=== PATIENT | female | born 1970 | race Caucasian/White ===

== ENCOUNTER 2019-07-12 21:39 | Emergency (ER) | payer OTHER, SELFPAY ==
[2019-07-12 22:01] VITALS: BP 158/85; PULSE 88; RESP 16; TEMP 37.7; O2SAT 98; BMI 72.6
--- NOTE | 2019-07-12 22:10 | ED_ITS ---
HPI - Female Genitourinary General Chief complaint: Urogenital-Female Stated complaint: UTI Time Seen by Provider: 07/12/19 21:41 Source: patient Mode of arrival: Wheelchair Limitations: no limitations and physical limitation History of Present Illness HPI Narrative: 48-year-old female former smoker presents with a chief complaint of a day or 2 of burning, frequency, urgency and dysuria. She has a subjective fever and some vague back pain but denies any nausea or vomiting. She denies any upper respiratory complaints such as runny nose, sore throat or cough. She is otherwise well and free of complaint. She denies vaginal bleeding or discharge MD Complaint: dysuria and UTI Onset (ago): day(s) Location: suprapubic Female Urogenital Radiation: Suprapubic Severity: mild Quality: Aching Duration: constant Relieving factors: none Exacerbating factors: urination Urinary symptoms: Difficulty Urinating, Dysuria, Foul Smelling Urine, Frequency and Urgency Patient : No Related Data Home Medications Medication Instructions Recorded Confirmed IBUPROFEN (Motrin / Advil) 400 mg PO #0 08/20/08 [EXCEDRIN] #0 08/20/08 Previous Rx's Medication Instructions Recorded ondansetron HCl [Zofran] 4 mg PO Q8H PRN #10 tab 07/12/19 sulfamethoxazole-trimethoprim 1 tab PO Q12H #20 tab 07/12/19 [Bactrim DS] Allergies Allergy/AdvReac Type Severity Reaction Status Date / Time Penicillins Allergy Verified 07/12/19 22:04 Review of Systems Constitutional Constitutional: Denies chills, Denies fatigue, Denies fever(s), Denies frequent falls, Denies lethargy and Denies weakness Eyes Eyes: Denies change in vision, Denies eye discharge, Denies irritation and Denies loss of vision ENT Ears, Nose, Mouth, and Throat: Denies change in voice, Denies dizziness, Denies neck pain, Denies sore throat and Denies throat swelling Cardiovascular Cardiovascular: Denies chest pain, Denies irregular heart rhythm, Denies lightheadedness, Denies palpitations, Denies dyspnea, Denies dyspnea on exertion and Denies orthopnea Respiratory Respiratory: Denies cough, Denies dyspnea, Denies dyspnea on exertion and Denies wheezing Gastrointestinal Gastrointestinal: Denies abdominal pain, Denies change in bowel habits, Denies diarrhea, Denies nausea and Denies vomiting Genitourinary Genitourinary: Denies hematuria, Reports urinary frequency, Denies flank pain, Denies urinary incontinence and Reports urinary urgency Musculoskeletal Musculoskeletal: Denies back pain, Denies muscle weakness, Denies neck pain, Denies numbness and Denies tingling Integumentary/Breasts Skin/Breast: Denies pruritus, Denies erythema, Denies rash and Denies wounds Neurologic Neurologic: Denies behavioral changes, Denies confusion, Denies dizziness, D enies frequent falls, Denies loss of vision, Denies numbness, Denies tingling and Denies weakness Psychiatric Psychiatric: Denies anxiety, Denies behavioral changes, Denies confusion, Denies depression, Denies homicidal ideation and Denies suicidal ideation Endocrine Endocrine: Denies fatigue, Denies flushing and Denies palpitations Hematologic/Lymphatic Hematologic/Lymphatic: Denies easy bruising Allergic/Immunologic Allergic/Immunologic: Denies urticaria, Denies throat swelling and Denies wheezing Patient History tobacco type: cigarettes alcohol intake frequency: 0-2 drinks per day Substance Use Type: does not use Exam Narrative Exam Narrative: GENERAL: [48] year old patient appears stated age. Well- nourished, well-developed patient, in mild distress. Morbidly obese HEAD: Atraumatic. Normocephalic. EYES: Pupils equal round and reactive. Extraocular motions intact. No scleral icterus. No injection or drainage. ENT: Nose without bleeding, purulent drainage. Throat without erythema, tonsillar hypertrophy or exudate. Airway patent. NECK: Trachea midline. Non tender CARDIOVASCULAR: Regular rate and rhythm without murmurs, gallops, or rubs. RESPIRATORY: Clear to auscultation. Breath sounds equal bilaterally. No wheezes, rales, or rhonchi. GASTROINTESTINAL: Abdomen soft, non-tender, nondistended. EXTREMITIES: No edema or joint tenderness. BACK: Nontender without deformity or crepitance. No flank tenderness. NEURO: AOx3. SKIN: No rash or erythema of visible areas Initial Vital Signs Initial Vital Signs: Vital Signs Temperature 99.9 F H 07/12/19 22:01 Pulse Rate 88 07/12/19 22:01 Respiratory Rate 16 07/12/19 22:01 Blood Pressure 158/85 H 07/12/19 22:01 Pulse Oximetry 98 07/12/19 22:01 Course Orders Ordered: Discontinued Medications Ondansetron HCl (Zofran Odt Prepack) 1 bottle MISC SEEINSTR ONE Stop: 07/12/19 22:24 Last Admin: 07/12/19 22:37 Dose: 1 bottle Documented by: LUIS ENRIQUE Trimethoprim/Sulfamethoxazole (Bactrim Ds) 1 tab PO NOW ONE Stop: 07/12/19 22:11 Last Admin: 07/12/19 22:37 Dose: 1 tab Documented by: LUIS ENRIQUE Vital Signs Vital signs: Vital Signs - 8 hr 07/12/19 22:01 Temperature 99.9 F H Pulse Rate 88 Respiratory Rate 16 Blood Pressure 158/85 H Pulse Oximetry 98 MDM - Female Genitourinary Lab Data Labs: Lab Results 07/12/19 Range/Units 22:00 Urine RBC 1-5/hpf (0-5/HPF) Urine WBC 30-100/hpf H (0-5/HPF) Ur Squamous Epith Cells 1-5 /hpf (0-5/HPF) Urine Bacteria Many (>30) H (None) Ur Culture Indicated? Specimen cultured Urine Dip Bedside Urine Glucose Negative Bedside Urine Bilirubin - Negative Bedside Urine Ketone +/- 5 Urine Specific [place] 1.015 Bedside Urine Occult Blood +++ Bedside Urine pH 7.5 Bedside Urine Protein ++ 100 Bedside Urine Urobilinogen +/- 1mg Bedside Urine Nitrite + Positive Bedside Urine Leukocytes +++ 500 Esterase Discharge Plan Departure Patient Disposition: Home Clinical Impression: Urinary tract infection Qualifiers: Urinary tract infection type: acute cystitis Hematuria presence: with hematuria Qualified Code(s): N30.01 - Acute cystitis with hematuria Discharge Date/Time: 07/12/19 22:47 Instructions: DI for Urinary Tract Infection (UTI) Activity Restrictions/Additional Instructions: *You have been diagnosed with [acute UTI] *What to do: *Take medications as directed *Follow up with your primary care provider in 2-3 days, call for an appointment. Let them know you were seen in the Emergency Department and that we ask that you be seen in follow up *Return to ER if you should have any new, worsening or concerning symptoms Prescriptions: New sulfamethoxazole-trimethoprim [Bactrim DS] 800-160 mg tablet 1 tab PO Q12H Qty: 20 RF: 0 ondansetron HCl [Zofran] 4 mg tablet 4 mg PO Q8H PRN (Reason: nausea and vomiting) Qty: 10 RF: 0 No Action IBUPROFEN (Motrin / Advil) 400 mg PO Qty: 0 RF: 0 [EXCEDRIN] Qty: 0 RF: 0 Referrals: Kael Matias MD [Primary Care Provider] - Cori Johnson MD [Physician] -
[2019-07-12 22:23] LABS: Bacteria Urine Many (>30); Culture Indicated Urine Specimen Cultured; RBC Urine 1-5/HPF (0-5/HPF); Squamous Epithelial Cell Urine 1-5 /HPF (0-5/HPF); WBC Urine 30-100/HPF (0-5/HPF)
[2019-07-12] MEDS: TRIMETH/SULFA 160/800 (DS) TABLET 1 TAB PO (22:37)
[2019-07-12] MEDS: ONDANSETRON 4 MG ODT PREPACK 1 BOTTLE MISC (22:37)
[2019-07-12 22:46] VITALS: BP 160/89; PULSE 90; RESP 20; O2SAT 98
== END 2019-07-12 22:47 | disposition home or self-care (01) ==
PROVIDERS: Emergency Provider Emergency Medicine; PCP Family Medicine
DX: N30.01 Acute cystitis with hematuria (principal)
CPT/HCPCS: 81003; 81015; 87077; 87086; 87186; 99281; 99283

== ENCOUNTER 2022-02-18 18:25 | Emergency (ER) | payer OTHER, SELFPAY ==
[2022-02-18] VITALS (12 sets, daily range): BP systolic 142; BP diastolic 72; PULSE 89–105; RESP 16–28; TEMP 36.9; O2SAT 91–99
--- NOTE | 2022-02-18 18:36 | DI.RAD.S_ITS ---
PROCEDURE: XR CHEST 1V INDICATIONS: chest pain TECHNIQUE: One view of the chest was acquired. COMPARISON: None. FINDINGS: Cardiomegaly with mild interstitial edema and pulmonary vascular congestion. There also appears to be some mild alveolar edema in the central/perihilar lungs. No pleural effusion or pneumothorax. Low lung volumes. IMPRESSION: Low lung volumes, cardiomegaly, and mild pulmonary edema. Dictated by: Grabiel Middleton M.D. on 02/18/2022 at 19:12 Approved by: Grabiel Middleton M.D. on 02/18/2022 at 19:12
[2022-02-18 18:48] LABS: INR 1.2 (0.9-1.3); Prothrombin Time 13.1 SECONDS (10.1-12.7)
[2022-02-18 18:50] LABS: Add Manual Diff / Slide Review NO; Basophils Absolute Auto 0 /uL (0-100); Basophils Percent Auto 0.7 % (0-2); Eosinophils Absolute Auto 100 /uL (0-450); Hematocrit 38.6 % (36-46); Hemoglobin 13.1 g/dL (12.0-16.0); Lymphocytes Absolute Auto 1000 /uL (1100-4500); Lymphocytes Percent Auto 15.3 % (25-40); Mean Corpuscular HGB Conc 33.9 % (30-36); Mean Corpuscular Hemoglobin 26.7 PG (26-34); Mean Corpuscular Volume 78.8 fL (80-100); Monocytes Absolute Auto 500 /uL (0-900); Monocytes Percent Auto 8.3 % (3-14); Neutrophils Absolute Auto 4700 /uL (1500-7000); Neutrophils Percent Auto 73.7 % (50-75); Platelet Count 152 X10^3/uL (150-400); Red Blood Cell Count 4.89 X10^6/uL (4.0-5.2); Red Cell Distribution Width 14.3 % (11.6-14.8); White Blood Cell Count 6.4 X10^3/uL (4.5-11.0)
[2022-02-18 18:51] LABS: PTT Partial Thromboplastin Tim 33 SECONDS (26.4-36.2)
[2022-02-18 18:54] LABS: Alanine Aminotransferase 18 IU/L (<35); Albumin 3.6 g/dL (3.5-5.0); Albumin Globulin Ratio 0.9 (1.0-2.8); Alkaline Phosphatase 71 U/L (38-126); Aspartate Aminotransferase 32 IU/L (14-36); Bilirubin Total 0.6 mg/dL (0.2-1.3); Blood Urea Nitrogen 15 mg/dL (7-17); Carbon Dioxide 31 mmol/L (22-32); Chloride 105 mmol/L (98-107); Creatine Kinase 37 U/L (30-135); Estimated Glomerular Filt Rate > 60 mL/min (>60); Globulin 3.8 g/dL (1.7-4.1); Glucose 104 mg/dL (70-100); HEMOLYSIS < 15 (0-50); Lipase 34 U/L (23-300); Magnesium 1.9 mg/dL (1.6-2.3); Potassium 3.3 mmol/L (3.4-5.1); Sodium 139 mmol/L (137-145); Total Protein 7.4 g/dL (6.3-8.2)
[2022-02-18 19:02] LABS: NT-proBNP (BNP-Adult 18+) 107 pg/mL (<125)
[2022-02-18 19:04] LABS: Troponin I < 0.012 ng/mL (0.01-0.034)
--- NOTE | 2022-02-18 21:15 | ED_ITS ---
HPI - Chest Pain <Marky Sinclair MD - Last Filed: 02/26/22 18:10> General Chief Complaint: Chest Pain Stated Complaint: R side pain Time Seen by Provider: 02/18/22 20:41 History of Present Illness HPI narrative: Patient here for right-sided chest pain and right leg pain. Ongoing for 3 days. Patient and state for a long time she has been bed ridden but usually can get up with a walker to the bathroom. However recently has declined in ability to do this. Patient denies any recent illness. No injury. Patient is morbidly obese. She states a long time ago she had a back injury and since then has declined in mobility. The pandemic has caused a lot of depression and loss of activity. Denies any previous blood clots in legs or lungs. Has right-sided chest discomfort with deep breath and radiates to the neck. Patient states right leg and left leg has chronic lymphedema. However right leg has been worse with pain in the last 3 days. Does feel short of breath as well. Patient in no distress speaking full sentences. Related Data Home Medications Medication Instructions Recorded Confirmed IBUPROFEN (Motrin / Advil) 400 mg PO ##0 08/20/08 [EXCEDRIN] ##0 08/20/08 Previous Rx's Medication Instructions Recorded ondansetron HCl 4 mg tablet 4 mg PO Q8H PRN nausea and 07/12/19 (Zofran) vomiting #10 tabs sulfamethoxazole 800 1 tab PO Q12H #20 tabs 07/12/19 mg-trimethoprim 160 mg tablet (Bactrim DS) ciprofloxacin HCl 500 mg tablet 500 mg PO Q12H #10 tabs 02/20/22 Allergies Allergy/AdvReac Type Severity Reaction Status Date / Time Penicillins Allergy Verified 07/12/19 22:04 Review of Systems <Marky Sinclair MD - Last Filed: 02/26/22 18:10> Review of Systems Narrative: GENERAL: Denies chills, fatigue, malaise, fever, sweats. HEENT: Denies sinus pain, ear pain, sore throat RESPIRATORY: Denies dyspnea, cough CARDIOVASCULAR: Positive for chest pain, negative palpitations GASTROINTESTINAL: Denies nausea, vomiting, abdominal pain : Denies dysuria, frequency, hematuria MUSCULOSKELETAL: Positive for muscle or bony pain SKIN: Denies rash, skin lesions NEUROLOGIC: Denies weakness, numbness ROS Unobtainable: All systems reviewed & are unremarkable except as noted in HPI and below Patient History <aMrky Sinclair MD - Last Filed: 02/26/22 18:10> Social History household members: spouse and children Smoking Status: Former smoker Smoking Status: Former smoker tobacco type: cigarettes alcohol intake frequency: 0-2 drinks per day Substance Use Type: does not use Exam <Marky Sinclair MD - Last Filed: 02/26/22 18:10> Narrative Exam Narrative: GENERAL: in no distress, not toxic not dyspneic HEAD: Normocephalic. EYES: Pupils equal round No scleral icterus. ENT: Mucous membranes moist. NECK: Trachea midline. CARDIOVASCULAR: Regular rate and rhythm without murmurs, tachycardic RESPIRATORY: Clear to auscultation. Breath sounds equal bilaterally. No wheezes, rales, or rhonchi. GASTROINTESTINAL: Abdomen soft, non-tender EXTREMITIES: Extensive bilateral lymphedema of the legs and feet. Very challenging for skin exam with mobility of her legs. Difficult to assess for calf tenderness NEURO: AOx4. SKIN: Warm and dry PSYCH: Not anxious, is cooperative Initial Vital Signs Initial Vital Signs: Vital Signs Temperature 98.4 F 02/18/22 18:30 Pulse Rate 105 H 02/18/22 18:30 Respiratory Rate 20 02/18/22 18:30 Blood Pressure 142/72 H 02/18/22 18:30 Pulse Oximetry 99 02/18/22 18:30 Oxygen Delivery Method 02/18/22 18:30 <Radha Lo DO - Last Filed: 02/22/22 08:34> Initial Vital Signs Initial Vital Signs: Vital Signs Temperature 98.4 F 02/18/22 18:30 Pulse Rate 105 H 02/18/22 18:30 Respiratory Rate 20 02/18/22 18:30 Blood Pressure 142/72 H 02/18/22 18:30 Pulse Oximetry 99 02/18/22 18:30 Oxygen Delivery Method 02/18/22 18:30 Course <Marky Sinclair MD - Last Filed: 02/26/22 18:10> Course Course Narrative: No new issues during course of stay February 19/2022 at 7:00 a.m.. Sign out to Dr. Lo there was no staff Advil overnight daily for transferring patient for CT scan. This morning will have more staff for CT scan imaging. Patient weight does qualify under [address] scan imaging. Girth to be determined. Patient does need SNF as well as social work February 19, 2022 at 6:50 p.m.. Spoke with administration on-call, spoke with Samson, patient is not to be admitted to the floor. Does not qualify medically. Patient will have to be discharged home with home health care or SNF. I spoke with home health care social worker Daphney, she has called several facilities and patient insurance is not accepted or there is no availability for beds. Next option would be home health care. 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 MD Yahir 8:00 p.m.. I did speak with patient and . They do have concerns about home health setting. has been working at home to try to prepare for her return but logistically bedroom is upstairs in the home. Concern for patient's safety for mobility if she does try do come down from the bedroom. does express patient may have some psychiatric considerations given her worsen ing symptoms over the years. Social work is seeing patient for many concerns. They are aware my discussion with administration that criteria has not been met for admission to the hospital. They do understand that [facility] facilities have been contacted today by social dennis Shelley and still pending at many facilities or rejected due to insurance coverage. Home health option will be reviewed tomorrow. Yahir KISER Orders Ordered: Discontinued Medications COVID-19 Vaccine mRNA LNP-S (MOD) (PF) (Covid-19 Vacc #1, Mrna(Mod) 100 Mcg/0.5 Ml Vial) 100 mcg IM .ONCE ONE Stop: 02/20/22 09:46 Last Admin: 02/20/22 17:51 Dose: Not Given Documented By: KB Ciprofloxacin (Ciprofloxacin 250 Mg Tablet) 500 mg PO BID LAYNE Last Admin: 02/20/22 09:34 Dose: 500 mg Documented By: RB Enoxaparin Sodium (Enoxaparin 40 Mg/0.4 Ml Syringe) 100 mg 0.5 mg/kg (100 mg) SUBCUT NOW ONE Stop: 02/19/22 03:31 Last Admin: 02/19/22 04:07 Dose: 100 mg Documented By: LARISSA Sodium Chloride (Normal Saline 0.9%) 500 mls @ 1,000 mls/hr IV BOLUS ONE Stop: 02/19/22 00:04 Last Infusion: 02/19/22 06:57 Dose: 0 mls/hr Documented By: Admin: 02/19/22 04:23 Dose: 1,000 mls/hr Documented By: DEAN Ciprofloxacin (Cipro) 400 mg in 200 mls @ 200 mls/hr IV NOW ONE Stop: 02/19/22 13:33 Last Infusion: 02/19/22 14:27 Dose: 0 mls/hr Documented By: Admin: 02/19/22 12:59 Dose: 200 mls/hr Documented By: PINA Ketorolac Tromethamine (Ketorolac 30 Mg/Ml Vial) 15 mg IV NOW ONE Stop: 02/19/22 10:03 Last Admin: 02/19/22 10:42 Dose: 15 mg Documented By: ENRIQUETA Morphine Sulfate (Morphine 4 Mg/Ml Inj) 4 mg IV NOW ONE Stop: 02/19/22 11:33 Last Admin: 02/19/22 11:46 Dose: 4 mg Documented By: ENRIQUETA Vital Signs Vital signs: Vital Signs - 8 hr 02/20/22 08:38 Pulse Rate 90 Respiratory Rate 18 Blood Pressure 147/91 H Pulse Oximetry 99 Oxygen Delivery Method Room Air <Radha Lo, DO - Last Filed: 02/22/22 08:34> Course Course Narrative: No new issues during course of stay February 19/2022 at 7:00 a.m.. Sign out to Dr. Lo there was no staff Advil overnight daily for transferring patient for CT scan. This morning will have more staff for CT scan imaging. Patient weight does qualify under [address] scan imaging. Girth to be determined. Patient does need SNF as well as social work 02/18/22 Teresita: Patient was signed out to myself by Dr. Sinclair. She is awaiting CT PE rule out this was ordered at midnight but they were unable to obtain secondary to manpower issues get patient onto the CT scanner. We are able to obtain this this morning CT is negative for pulmonary emboli. There is a right adrenal nodule noted with recommendation for follow-up CT adrenal protocol or MRI adrenal protocol in the future. Patient tolerated well. She was seen independently evaluated by myself she is had right-sided chest and leg pain, no clear emergent cause was found her ultrasound was negative for DVT. Workup s hows UTI but no other cardiac, pulmonary, vascular cause at this time may be related to or musculoskeletal issues. Patient and family indicates that they are significant issues at home with movement patient has found herself in a situation where she is unable to get to her bed, she is been sleeping on the couch and at times using briefs in puppy pads as she is unable to get to the bathroom in a timely manner. Patient has got herself a walker but is unable to stand from couch without significant assistance. They are seeking help with rehab placement or similar resources. At this time no clear medical cause has been found for admission she was given a dose of IV antibiotics for her UTI. C ase was discussed with Dr. Nova who is on-call for her team and he did see patient here in the department [id number]. DEVELOPMENT EDITOR in the department but with the patient discussed home health options but there were concerns that this may not be adequate from the family and staff, were also seeking placement possible rehab facility. Patient was seen in the afternoon by PT. Recommendations were appreciated. During the day social work in the emergency department was contacted by upstairs social work and busperson hospital plan administrator with recommendations about how to proceed. This was prior to PT. they did not feel patient qualified medically. They wish patient to be discharged home or SNF, home health care and community maintenance and utilities supervisor program. At this time there is either no availability for beds for patient's insurance is not accepted. Next option would be home health care. There is no community maintenance and utilities supervisor program in the region that she is currently living in. Patient has continued to be medically stable in the department. Patient signed out to Dr. Sinclair overnight while continuing to assist patient with safe disposition. February 19, 2022 at 6:50 p.m.. Spoke with administration on-call, spoke with Samson, patient is not to be admitted to the floor. Does not qualify medically. Patient will have to be discharged home with home health care or SNF. I spoke with home health care social worker Daphney, she has called several facilities and patient insurance is not accepted or there is no availability for beds. Next option would be home health care. 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 MD Yahir 8:00 p.m.. I did speak with patient and . They do have concerns about home health setting. has been working at home to try to prepare for her return but logistically bedroom is upstairs in the home. Concern for patient's safety for mobility if she does try do come down from the bedroom. does express patient may have some psychiatric considerations given her worsening symptoms over the years. Social work is seeing patient for many concerns. They are aware my discussion with administration that criteria has n ot been met for admission to the hospital. They do understand that [facility] facilities have been contacted today by social dennis Shelley and still pending at many facilities or rejected due to insurance coverage. Home health option will be reviewed tomorrow. Yahir KISER 02/19/22 Mank: Patient signed back out to myself by Dr. Sinclair. Patient seen independently evaluated by myself again. She is currently on an oral antibiotic for UTI. She defers anything for pain states her extremities feeling better she found her PT visit quite helpful. She and her are working to try to set up home to may get ready for safe disposition they are still interested in rehab if there was a bed available at this time it is unlikely but social work is continuing to work on it and they are meeting. Patient also met with wound for options to treat her skin. We both discussed potential resources within the community that are available she is found this helpful. Orders Ordered: Discontinued Medications COVID-19 Vaccine mRNA LNP-S (MOD) (PF) (Covid-19 Vacc #1, Mrna(Mod) 100 Mcg/0.5 Ml Vial) 100 mcg IM .ONCE ONE Stop: 02/20/22 09:46 Last Admin: 02/20/22 17:51 Dose: Not Given Documented By: KB Ciprofloxacin (Ciprofloxacin 250 Mg Tablet) 500 mg PO BID LAYNE Last Admin: 02/20/22 09:34 Dose: 500 mg Documented By: RB Enoxaparin Sodium (Enoxaparin 40 Mg/0.4 Ml Syringe) 100 mg 0.5 mg/kg (100 mg) SUBCUT NOW ONE Stop: 02/19/22 03:31 Last Admin: 02/19/22 04:07 Dose: 100 mg Documented By: AP Sodium Chloride (Normal Saline 0.9%) 500 mls @ 1,000 mls/hr IV BOLUS ONE Stop: 02/19/22 00:04 Last Infusion: 02/19/22 06:57 Dose: 0 mls/hr Documented By: Admin: 02/19/22 04:23 Dose: 1,000 mls/hr Documented By: DEAN Ciprofloxacin (Cipro) 400 mg in 200 mls @ 200 mls/hr IV NOW ONE Stop: 02/19/22 13:33 Last Infusion: 02/19/22 14:27 Dose: 0 mls/hr Documented By: Admin: 02/19/22 12:59 Dose: 200 mls/hr Documented By: PINA Ketorolac Tromethamine (Ketorolac 30 Mg/Ml Vial) 15 mg IV NOW ONE Stop: 02/19/22 10:03 Last Admin: 02/19/22 10:42 Dose: 15 mg Documented By: ENRIQUETA Morphine Sulfate (Morphine 4 Mg/Ml Inj) 4 mg IV NOW ONE Stop: 02/19/22 11:33 Last Admin: 02/19/22 11:46 Dose: 4 mg Documented By: ENRIQUETA Vital Signs Vital signs: Vital Signs - 8 hr 02/20/22 08:38 Pulse Rate 90 Respiratory Rate 18 Blood Pressure 147/91 H Pulse Oximetry 99 Oxygen Delivery Method Room Air MDM - Chest Pain <Marky Sinclair MD - Last Filed: 02/26/22 18:10> Differential Diagnosis Differential diagnosis: Likely stable angina, unstable angina pectoris, chest pain and other (PE/DVT) Lab Data Result diagrams: 02/18/22 16:24 02/18/22 16:24 Labs: Lab Results 02/18/22 02/18/22 02/18/22 Range/Units 16:24 16:24 16:24 WBC 6.4 (4.5-11.0) X10^3/uL RBC 4.89 (4.0-5.2) X10^6/uL Hgb 13.1 (12.0-16.0) g/dL Hct 38.6 (36-46) % MCV 78.8 L (80-100) fL MCH 26.7 (26-34) PG MCHC 33.9 (30-36) % RDW 14.3 (11.6-14.8) % Plt Count 152 (150-400) X10^3/uL Neut % (Auto) 73.7 (50-75) % Lymph % (Auto) 15.3 L (25-40) % [place] % (Auto) 8.3 (3-14) % Eos % (Auto) 2.0 (2-4) % Baso % (Auto) 0.7 (0-2) % Neut # (Auto) 4700 (3645-1027) /uL Lymph # (Auto) 1000 L (8029-6962) /uL [place] # (Auto) 500 (0-900) /uL Eos # (Auto) 100 (0-450) /uL Baso # (Auto) 0 (0-100) /uL PT 13.1 H (10.1-12.7) SECONDS INR 1.2 (0.9-1.3) APTT 33 (26.4-36.2) SECONDS D-Dimer (<230) ng/mL Sodium 139 (137-145) mmol/L Potassium 3.3 L (3.4-5.1) mmol/L Chloride 105 (98-107) mmol/L Carbon Dioxide 31 (22-32) mmol/L BUN 15 (7-17) mg/dL Creatinine 0.60 (0.52-1.04) mg/dL Estimated GFR > 60 (>60) mL/min BUN/Creatinine Ratio 25.0 H (6-22) Glucose 104 H (70-100) mg/dL Calcium 9.0 (8.4-10.2) mg/dL Magnesium 1.9 (1.6-2.3) mg/dL Total Bilirubin 0.6 (0.2-1.3) mg/dL AST 32 (14-36) IU/L ALT 18 (<35) IU/L Alkaline Phosphatase 71 (38-126) U/L Total Creatine Kinase 37 (30-135) U/L CK-MB (CK-2) TNP CK-MB (CK-2) Rel Index TNP Troponin I < 0.012 (0.01-0.034) ng/mL NT-Pro-B Natriuret Pep (<125) pg/mL Total Protein 7.4 (6.3-8.2) g/dL Albumin 3.6 (3.5-5.0) g/dL Globulin 3.8 (1.7-4.1) g/dL Albumin/Globulin Ratio 0.9 L (1.0-2.8) Lipase 34 (23-300) U/L Urine Color Urine Appearance Urine pH (4.5-8.0) Ur Specific [place] (1.000-1.035) Urine Protein (Negative) Urine Glucose (UA) (Negative) g/dL Urine Ketones (NEGATIVE) Urine Occult Blood (Negative) Urine Nitrate (Negative) Urine Bilirubin (NEGATIVE) Urine Urobilinogen (0.2) E.U./dL Ur Leukocyte Esterase (NEGATIVE) Urine RBC (0-5/HPF) Urine WBC (0-5/HPF) Ur Squamous Epith Cells (0-5/HPF) Urine Bacteria (None) Ur Culture Indicated? 02/18/22 02/18/22 02/19/22 Range/Units 16:24 22:54 00:42 WBC (4.5-11.0) X10^3/uL RBC (4.0-5.2) X10^6/uL Hgb (12.0-16.0) g/dL Hct (36-46) % MCV (80-100) fL MCH (26-34) PG MCHC (30-36) % RDW (11.6-14.8) % Plt Count (150-400) X10^3/uL Neut % (Auto) (50-75) % Lymph % (Auto) (25-40) % [place] % (Auto) (3-14) % Eos % (Auto) (2-4) % Baso % (Auto) (0-2) % Neut # (Auto) (7559-8997) /uL Lymph # (Auto) (9858-0056) /uL [place] # (Auto) (0-900) /uL Eos # (Auto) (0-450) /uL Baso # (Auto) (0-100) /uL PT (10.1-12.7) SECONDS INR (0.9-1.3) APTT (26.4-36.2) SECONDS D-Dimer 791 H (<230) ng/mL Sodium (137-145) mmol/L Potassium (3.4-5.1) mmol/L Chloride (98-107) mmol/L Carbon Dioxide (22-32) mmol/L BUN (7-17) mg/dL Creatinine (0.52-1.04) mg/dL Estimated GFR (>60) mL/min BUN/Creatinine Ratio (6-22) Glucose (70-100) mg/dL Calcium (8.4-10.2) mg/dL Magnesium (1.6-2.3) mg/dL Total Bilirubin (0.2-1.3) mg/dL AST (14-36) IU/L ALT (<35) IU/L Alkaline Phosphatase (38-126) U/L Total Creatine Kinase (30-135) U/L CK-MB (CK-2) CK-MB (CK-2) Rel Index Troponin I (0.01-0.034) ng/mL NT-Pro-B Natriuret Pep 107 (<125) pg/mL Total Protein (6.3-8.2) g/dL Albumin (3.5-5.0) g/dL Globulin (1.7-4.1) g/dL Albumin/Globulin Ratio (1.0-2.8) Lipase (23-300) U/L Urine Color Yellow Urine Appearance Cloudy Urine pH 7.5 (4.5-8.0) Ur Specific [place] 1.010 (1.000-1.035) Urine Protein Negative (Negative) Urine Glucose (UA) Negative (Negative) g/dL Urine Ketones Negative (NEGATIVE) Urine Occult Blood Trace-lysed (Negative) Urine Nitrate Positive H (Negative) Urine Bilirubin Negative (NEGATIVE) Urine Urobilinogen 0.2 (0.2) E.U./dL Ur Leukocyte Esterase 1+ H (NEGATIVE) Urine RBC None seen (0-5/HPF) Urine WBC 0-1/hpf (0-5/HPF) Ur Squamous Epith Cells 0-1 /hpf (0-5/HPF) Urine Bacteria Many (>30) H (None) Ur Culture Indicated? Specimen cultured 02/19/22 Range/Units 06:22 WBC (4.5-11.0) X10^3/uL RBC (4.0-5.2) X10^6/uL Hgb (12.0-16.0) g/dL Hct (36-46) % MCV (80-100) fL MCH (26-34) PG MCHC (30-36) % RDW (11.6-14.8) % Plt Count (150-400) X10^3/uL Neut % (Auto) (50-75) % Lymph % (Auto) (25-40) % [place] % (Auto) (3-14) % Eos % (Auto) (2-4) % Baso % (Auto) (0-2) % Neut # (Auto) (2506-0449) /uL Lymph # (Auto) (4613-7002) /uL [place] # (Auto) (0-900) /uL Eos # (Auto) (0-450) /uL Baso # (Auto) (0-100) /uL PT (10.1-12.7) SECONDS INR (0.9-1.3) APTT (26.4-36.2) SECONDS D-Dimer (<230) ng/mL Sodium (137-145) mmol/L Potassium (3.4-5.1) mmol/L Chloride (98-107) mmol/L Carbon Dioxide (22-32) mmol/L BUN (7-17) mg/dL Creatinine (0.52-1.04) mg/dL Estimated GFR (>60) mL/min BUN/Creatinine Ratio (6-22) Glucose (70-100) mg/dL Calcium (8.4-10.2) mg/dL Magnesium (1.6-2.3) mg/dL Total Bilirubin (0.2-1.3) mg/dL AST (14-36) IU/L ALT (<35) IU/L Alkaline Phosphatase (38-126) U/L Total Creatine Kinase 33 (30-135) U/L CK-MB (CK-2) TNP CK-MB (CK-2) Rel Index TNP Troponin I < 0.012 (0.01-0.034) ng/mL NT-Pro-B Natriuret Pep (<125) pg/mL Total Protein (6.3-8.2) g/dL Albumin (3.5-5.0) g/dL Globulin (1.7-4.1) g/dL Albumin/Globulin Ratio (1.0-2.8) Lipase (23-300) U/L Urine Color Urine Appearance Urine pH (4.5-8.0) Ur Specific [place] (1.000-1.035) Urine Protein (Negative) Urine Glucose (UA) (Negative) g/dL Urine Ketones (NEGATIVE) Urine Occult Blood (Negative) Urine Nitrate (Negative) Urine Bilirubin (NEGATIVE) Urine Urobilinogen (0.2) E.U./dL Ur Leukocyte Esterase (NEGATIVE) Urine RBC (0-5/HPF) Urine WBC (0-5/HPF) Ur Squamous Epith Cells (0-5/HPF) Urine Bacteria (None) Ur Culture Indicated? Imaging Data Chest x-ray: Radiologist's Impression: [address] [address] XRay Report Signed Patient: Nidhi Parish MR#: [id number] : 1970 Acct:[id number] Age/Sex: 51 / F Date of Service: 02/18/22 Loc: ED Accession Number: [id number] ?? Procedure: XR chest 1V Ordering Provider: Marky Sinclair MD PROCEDURE:? XR CHEST 1V ? INDICATIONS:? chest pain ? TECHNIQUE:? One view of the chest was acquired.? ? COMPARISON:? None. ? FINDINGS:? ? Cardiomegaly with mild interstitial edema and pulmonary vascular congestion.? There also appears to be some mild alveolar edema in the central/perihilar lungs.? No pleural effusion or pneumothorax.? Low lung volumes. ? IMPRESSION:? Low lung volumes, cardiomegaly, and mild pulmonary edema.? ? ? Dictated by: Grabiel Middleton M.D. on 02/18/2022 at 19:12 ? ? Approved by: Grabiel Middleton M.D. on 02/18/2022 at 19:12 ? ECG Data Interpretation: Sinus tachycardia, no ST elevation or depression. Rate 103 <Radha Lo, - Last Filed: 02/22/22 08:34> Lab Data Labs: Lab Results 02/18/22 02/18/22 02/18/22 Range/Units 16:24 16:24 16:24 WBC 6.4 (4.5-11.0) X10^3/uL RBC 4.89 (4.0-5.2) X10^6/uL Hgb 13.1 (12.0-16.0) g/dL Hct 38.6 (36-46) % MCV 78.8 L (80-100) fL MCH 26.7 (26-34) PG MCHC 33.9 (30-36) % RDW 14.3 (11.6-14.8) % Plt Count 152 (150-400) X10^3/uL Neut % (Auto) 73.7 (50-75) % Lymph % (Auto) 15.3 L (25-40) % [place] % (Auto) 8.3 (3-14) % Eos % (Auto) 2.0 (2-4) % Baso % (Auto) 0.7 (0-2) % Neut # (Auto) 4700 (7677-5541) /uL Lymph # (Auto) 1000 L (9961-9362) /uL [place] # (Auto) 500 (0-900) /uL Eos # (Auto) 100 (0-450) /uL Baso # (Auto) 0 (0-100) /uL PT 13.1 H (10.1-12.7) SECONDS INR 1.2 (0.9-1.3) APTT 33 (26.4-36.2) SECONDS D-Dimer (<230) ng/mL Sodium 139 (137-145) mmol/L Potassium 3.3 L (3.4-5.1) mmol/L Chloride 105 (98-107) mmol/L Carbon Dioxide 31 (22-32) mmol/L BUN 15 (7-17) mg/dL Creatinine 0.60 (0.52-1.04) mg/dL Estimated GFR > 60 (>60) mL/min BUN/Creatinine Ratio 25.0 H (6-22) Glucose 104 H (70-100) mg/dL Calcium 9.0 (8.4-10.2) mg/dL Magnesium 1.9 (1.6-2.3) mg/dL Total Bilirubin 0.6 (0.2-1.3) mg/dL AST 32 (14-36) IU/L ALT 18 (<35) IU/L Alkaline Phosphatase 71 (38-126) U/L Total Creatine Kinase 37 (30-135) U/L CK-MB (CK-2) TNP CK-MB (CK-2) Rel Index TNP Troponin I < 0.012 (0.01-0.034) ng/mL NT-Pro-B Natriuret Pep (<125) pg/mL Total Protein 7.4 (6.3-8.2) g/dL Albumin 3.6 (3.5-5.0) g/dL Globulin 3.8 (1.7-4.1) g/dL Albumin/Globulin Ratio 0.9 L (1.0-2.8) Lipase 34 (23-300) U/L Urine Color Urine Appearance Urine pH (4.5-8.0) Ur Specific [place] (1.000-1.035) Urine Protein (Negative) Urine Glucose (UA) (Negative) g/dL Urine Ketones (NEGATIVE) Urine Occult Blood (Negative) Urine Nitrate (Negative) Urine Bilirubin (NEGATIVE) Urine Urobilinogen (0.2) E.U./dL Ur Leukocyte Esterase (NEGATIVE) Urine RBC (0-5/HPF) Urine WBC (0-5/HPF) Ur Squamous Epith Cells (0-5/HPF) Urine Bacteria (None) Ur Culture Indicated? 02/18/22 02/18/22 02/19/22 Range/Units 16:24 22:54 00:42 WBC (4.5-11.0) X10^3/uL RBC (4.0-5.2) X10^6/uL Hgb (12.0-16.0) g/dL Hct (36-46) % MCV (80-100) fL MCH (26-34) PG MCHC (30-36) % RDW (11.6-14.8) % Plt Count (150-400) X10^3/uL Neut % (Auto) (50-75) % Lymph % (Auto) (25-40) % [place] % (Auto) (3-14) % Eos % (Auto) (2-4) % Baso % (Auto) (0-2) % Neut # (Auto) (3100-3306) /uL Lymph # (Auto) (8536-6414) /uL [place] # (Auto) (0-900) /uL Eos # (Auto) (0-450) /uL Baso # (Auto) (0-100) /uL PT (10.1-12.7) SECONDS INR (0.9-1.3) APTT (26.4-36.2) SECONDS D-Dimer 791 H (<230) ng/mL Sodium (137-145) mmol/L Potassium (3.4-5.1) mmol/L Chloride (98-107) mmol/L Carbon Dioxide (22-32) mmol/L BUN (7-17) mg/dL Creatinine (0.52-1.04) mg/dL Estimated GFR (>60) mL/min BUN/Creatinine Ratio (6-22) Glucose (70-100) mg/dL Calcium (8.4-10.2) mg/dL Magnesium (1.6-2.3) mg/dL Total Bilirubin (0.2-1.3) mg/dL AST (14-36) IU/L ALT (<35) IU/L Alkaline Phosphatase (38-126) U/L Total Creatine Kinase (30-135) U/L CK-MB (CK-2) CK-MB (CK-2) Rel Index Troponin I (0.01-0.034) ng/mL NT-Pro-B Natriuret Pep 107 (<125) pg/mL Total Protein (6.3-8.2) g/dL Albumin (3.5-5.0) g/dL Globulin (1.7-4.1) g/dL Albumin/Globulin Ratio (1.0-2.8) Lipase (23-300) U/L Urine Color Yellow Urine Appearance Cloudy Urine pH 7.5 (4.5-8.0) Ur Specific [place] 1.010 (1.000-1.035) Urine Protein Negative (Negative) Urine Glucose (UA) Negative (Negative) g/dL Urine Ketones Negative (NEGATIVE) Urine Occult Blood Trace-lysed (Negative) Urine Nitrate Positive H (Negative) Urine Bilirubin Negative (NEGATIVE) Urine Urobilinogen 0.2 (0.2) E.U./dL Ur Leukocyte Esterase 1+ H (NEGATIVE) Urine RBC None seen (0-5/HPF) Urine WBC 0-1/hpf (0-5/HPF) Ur Squamous Epith Cells 0-1 /hpf (0-5/HPF) Urine Bacteria Many (>30) H (None) Ur Culture Indicated? Specimen cultured 02/19/22 Range/Units 06:22 WBC (4.5-11.0) X10^3/uL RBC (4.0-5.2) X10^6/uL Hgb (12.0-16.0) g/dL Hct (36-46) % MCV (80-100) fL MCH (26-34) PG MCHC (30-36) % RDW (11.6-14.8) % Plt Count (150-400) X10^3/uL Neut % (Auto) (50-75) % Lymph % (Auto) (25-40) % [place] % (Auto) (3-14) % Eos % (Auto) (2-4) % Baso % (Auto) (0-2) % Neut # (Auto) (2644-2453) /uL Lymph # (Auto) (7256-8146) /uL [place] # (Auto) (0-900) /uL Eos # (Auto) (0-450) /uL Baso # (Auto) (0-100) /uL PT (10.1-12.7) SECONDS INR (0.9-1.3) APTT (26.4-36.2) SECONDS D-Dimer (<230) ng/mL Sodium (137-145) mmol/L Potassium (3.4-5.1) mmol/L Chloride (98-107) mmol/L Carbon Dioxide (22-32) mmol/L BUN (7-17) mg/dL Creatinine (0.52-1.04) mg/dL Estimated GFR (>60) mL/min BUN/Creatinine Ratio (6-22) Glucose (70-100) mg/dL Calcium (8.4-10.2) mg/dL Magnesium (1.6-2.3) mg/dL Total Bilirubin (0.2-1.3) mg/dL AST (14-36) IU/L ALT (<35) IU/L Alkaline Phosphatase (38-126) U/L Total Creatine Kinase 33 (30-135) U/L CK-MB (CK-2) TNP CK-MB (CK-2) Rel Index TNP Troponin I < 0.012 (0.01-0.034) ng/mL NT-Pro-B Natriuret Pep (<125) pg/mL Total Protein (6.3-8.2) g/dL Albumin (3.5-5.0) g/dL Globulin (1.7-4.1) g/dL Albumin/Globulin Ratio (1.0-2.8) Lipase (23-300) U/L Urine Color Urine Appearance Urine pH (4.5-8.0) Ur Specific [place] (1.000-1.035) Urine Protein (Negative) Urine Glucose (UA) (Negative) g/dL Urine Ketones (NEGATIVE) Urine Occult Blood (Negative) Urine Nitrate (Negative) Urine Bilirubin (NEGATIVE) Urine Urobilinogen (0.2) E.U./dL Ur Leukocyte Esterase (NEGATIVE) Urine RBC (0-5/HPF) Urine WBC (0-5/HPF) Ur Squamous Epith Cells (0-5/HPF) Urine Bacteria (None) Ur Culture Indicated? Imaging Data CT scan - chest: Radiologist's Impression: Close Vascular Ultrasound (Signed) Bernardo Lee - 02/18/22 Chest CTA (Signed) Bill Diezwn - 02/18/22 Chest X-Ray (Signed) Grabiel Middleton - 02/18/22 Launch?Image [address] [address] [address] Scan Report Signed Patient: Nidhi Parish MR#: [id number] : 1970 Acct:[id number] Age/Sex: 51 / F Date of Service: 02/18/22 Loc: ED Accession Number: [id number] ?? Procedure: CT angio chest PE protocol Ordering Provider: Marky Sinclair MD PROCEDURE:? CT ANGIO CHEST PE PROTOCOL ? INDICATIONS:? Chest pain ? TECHNIQUE:? After the administration of intravenous contrast, 2 mm thick sections acquired from the pulmonary apices to the posterior costophrenic angles.? 3-dimensional maximum intensity projection (MIP) coronal and sagittal reformats were then acquired through the thorax.? For radiation dose reduction, the following was used:? automated exposure control, adjustment of mA and/or kV according to patient size.? ? COMPARISON:? [facility], CR, XR CHEST 1V, 02/18/2022, 18:37. ? FINDINGS:? Image quality:? Fair.? ? Pulmonary arteries:? Pulmonary arteries are normal in size, and demonstrate no intraluminal filling defects to suggest central pulmonary embolism.? ? Lungs and pleura:? Mild dependent atelectasis.? No pleural effusions or pneumothorax.? Central and peripheral airways are patent.? ? Mediastinum:? Heart size is prominent, without pericardial effusion.? No mediastinal or hilar adenopathy.? Thoracic aorta is normal in caliber and enhancement.? Esophagus is normal in caliber, small hiatal hernia.? Asymmetric elevation of the right hemidiaphragm. ? ? Bones and chest wall:? No suspicious bony lesions.? Ribs and thoracic spine appear intact throughout.? Thyroid gland is unremarkable.? No axillary or supraclavicular adenopathy.? ? Abdomen:? Right adrenal nodule measuring 3.4 cm, ().? This nodule is low- density. ? IMPRESSION:? 1. No central pulmonary embolism. ? 2. Minimal dependent atelectasis.? Prominent heart size. ? 3. Incidental right adrenal nodule is indeterminate.? -Recommend washout CT adrenal protocol or MRI adrenal protocol for further evaluation. ? ? ? Dictated by: Taras Diez M.D. on 02/19/2022 at 8:58 ? ? Approved by: Taras Diez M.D. on 02/19/2022 at 9:08?? MDM Narrative Medical decision making narrative: This is a 51-year-old female with history of morbid obesity on no other daily medications. Patient has had increasing weakness and debility secondary to habitus, she is developed right-sided chest and lower extremity pain. No pulmonary emboli or blood clots were found, troponins negative x2 with negative EKG, patient was found to have a UTI. Patient has a mild hypokalemia but no other significant changes. Discussed with patient her findings today, she did ask for a dose of pain medication she is not had anything overnight was given a dose of Toradol here. Discussed with her primary care service, Dr. Nova. Patient less likely to have a cardiac cause of her symptoms regarding her lower extremity involvement. DEVELOPMENT EDITOR met with patient to discuss options and way we can help with safe disposition. PT did see the patient in the afternoon, they recommend rehab/SNF and options are being explored. There was no bed availability or they did not take patient's insurance today. Discharge Plan Departure Patient Disposition: Home Clinical Impression: Right-sided chest pain, Leg pain, right, UTI (urinary tract infection), Morbid obesity Instructions: DI for Urinary Tract Infection (UTI) Activity Restrictions/Additional Instructions: Please follow up with the resources provided by social work. Home health care is supposed to arrive tomorrow. Your medical workup was overall reassuring but you do have what appears to be a UTI. Prescription is included and sent to [facility] in [place]. Use the topical ointments in the areas where your skin is excoriated or red. Use these as instructed by wound care. Please feel free to return if you are having new or worsening symptoms, passing out, new changes to her chest pain, shortness of breath, new swelling, persistent vomiting or other new or concerning symptoms. Prescriptions: New ciprofloxacin HCl 500 mg tablet 500 mg PO Q12H Qty: 10 0RF No Action IBUPROFEN (Motrin / Advil) 400 mg PO Qty: 0 [EXCEDRIN] Qty: 0 sulfamethoxazole-trimethoprim [Bactrim DS] 800-160 mg tablet 1 tab PO Q12H Qty: 20 0RF ondansetron HCl [Zofran] 4 mg tablet 4 mg PO Q8H PRN (Reason: nausea and vomiting) Qty: 10 0RF Referrals: Merrill Temple MD [Primary Care Provider] - Visit Report Forms: Patient Portal/API
[2022-02-18 23:11] LABS: D Dimer 791 ng/mL (<230)
--- NOTE | 2022-02-18 23:35 | DI.CT.S_ITS ---
PROCEDURE: CT ANGIO CHEST PE PROTOCOL INDICATIONS: Chest pain TECHNIQUE: After the administration of intravenous contrast, 2 mm thick sections acquired from the pulmonary apices to the posterior costophrenic angles. 3-dimensional maximum intensity projection (MIP) coronal and sagittal reformats were then acquired through the thorax. For radiation dose reduction, the following was used: automated exposure control, adjustment of mA and/or kV according to patient size. COMPARISON: [facility], CR, XR CHEST 1V, 02/18/2022, 18:37. FINDINGS: Image quality: Fair. Pulmonary arteries: Pulmonary arteries are normal in size, and demonstrate no intraluminal filling defects to suggest central pulmonary embolism. Lungs and pleura: Mild dependent atelectasis. No pleural effusions or pneumothorax. Central and peripheral airways are patent. Mediastinum: Heart size is prominent, without pericardial effusion. No mediastinal or hilar adenopathy. Thoracic aorta is normal in caliber and enhancement. Esophagus is normal in caliber, small hiatal hernia. Asymmetric elevation of the right hemidiaphragm. Bones and chest wall: No suspicious bony lesions. Ribs and thoracic spine appear intact throughout. Thyroid gland is unremarkable. No axillary or supraclavicular adenopathy. Abdomen: Right adrenal nodule measuring 3.4 cm, (4/126). This nodule is low-density. IMPRESSION: 1. No central pulmonary embolism. 2. Minimal dependent atelectasis. Prominent heart size. 3. Incidental right adrenal nodule is indeterminate. -Recommend washout CT adrenal protocol or MRI adrenal protocol for further evaluation. Dictated by: Taras Diez M.D. on 02/19/2022 at 8:58 Approved by: Taras Diez M.D. on 02/19/2022 at 9:08
--- NOTE | 2022-02-18 23:35 | DI.US.S_ITS ---
PROCEDURE: US PERIPH VENOUS LOW EXTREM RT INDICATIONS: PAIN TECHNIQUE: Real-time imaging, as well as color and pulse Doppler interrogation, were performed of the lower extremity deep veins from the inguinal ligament to the popliteal fossa. COMPARISON: None. FINDINGS: The common femoral, proximal femoral and popliteal veins are normally compressible, and free of intraluminal thrombus. The mid and distal femoral veins were not well seen secondary to body habitus. Color and pulse Doppler demonstrate normal phasic intraluminal flow. There is normal augmentation response to distal compression maneuver. IMPRESSION: 1. No definite evidence of deep venous thrombosis in the right lower extremity. Dictated by: Bernardo Lee M.D. on 02/19/2022 at 0:43 Approved by: Bernardo Lee M.D. on 02/19/2022 at 0:44
[2022-02-19] VITALS (39 sets, daily range): BP systolic 131–160; BP diastolic 63–107; PULSE 78–101; RESP 15–26; O2SAT 93–100
[2022-02-19 00:50] LABS: Appearance Urine UA CLOUDY; Bilirubin Urine UA NEGATIVE (NEGATIVE); Color Urine UA YELLOW; Glucose Urine UA NEGATIVE (Negative); Ketones Urine UA NEGATIVE (NEGATIVE); Leukocyte Esterase Urine UA 1+ (NEGATIVE); Nitrite Urine UA POSITIVE (Negative); Occult Blood Urine UA TRACE-LYSED (Negative); Protein Urine UA NEGATIVE (Negative); Urobilinogen Urine UA 0.2 E.U./dL (0.2)
[2022-02-19 00:56] LABS: Bacteria Urine Many (>30); Culture Indicated Urine Specimen Cultured; RBC Urine None Seen (0-5/HPF); Squamous Epithelial Cell Urine 0-1 /HPF (0-5/HPF); WBC Urine 0-1/HPF (0-5/HPF); pH Urine UA 7.5 (4.5-8.0)
[2022-02-19] MEDS: ENOXAPARIN 40 MG/0.4 ML SYRINGE 100 MG SUBCUT (04:07)
[2022-02-19] MEDS: SODIUM CHLORIDE 0.9% 500 ML 1000 ML IV (04:23)
[2022-02-19 06:50] LABS: Creatine Kinase 33 U/L (30-135)
[2022-02-19 07:03] LABS: Troponin I < 0.012 ng/mL (0.01-0.034)
[2022-02-19] MEDS: KETOROLAC 30 MG/ML VIAL 15 MG IV (10:42)
--- NOTE | 2022-02-19 11:30 | PC.NURSE ---
Went to PT office and talked with Tia in PT to notify of order for PT eval.
[2022-02-19] MEDS: MORPHINE 4 MG/ML INJ IV (11:46)
[2022-02-19] MEDS: CIPROFLOXACIN 400 MG/200 ML PIGGYBACK 200 MG IV (12:59)
--- NOTE | 2022-02-19 13:50 | PT.IIE ---
Physical Therapy Inpatient Evaluation/Re-Eval M1 PT/OT-IP Prior Functional Status Start: 02/19/22 15:01 Freq: Status: Active Protocol: Document 02/19/22 13:50 AB (Rec: 02/19/22 15:19 AB [id number]) Medical Review Prior Functional Status Medical History Reviewed Yes Communication able to make needs known Mobility and Gait pt stated that she has been slowly declining in function due to RLE pain. able to ambulate ~ 10 ft to the toilet without AD but furniture cruises and usually just sits on the couch and props BLE on 2 ottomans. until ~ 3 months only able to stand and was using pads for voiding. For the last 5-6 days, unable to even stand. stated that they just got a walker to assist but unable to stand due to pain. pt stated that she has not told her doctor that she is has been chair bound for a while. sponge bathes with disposable wipes. pt stated that she usually has simple food accessible for her ( apple sauce, yogurt) when she is by herself. Spouse assists with meals and daughter occasionally will also bring food for her. Social History Household Members spouse,children Living Arrangements House Number of Floors (Floors) Two Floors Number of Stairs To Enter/Railing? pt lives on a split level house 7 steps wide rails to enter 8 steps L rail ascending to get to main living area Home Environment Standard Height Toilet,Tub/ Shower Home Equipment Front Wheel Walker Additional Social History Comment spouse works 730 to 530 and unable to assist; daughter at home with pt as well M2 PT-IP Current Condition Start: 02/19/22 15:01 Freq: Status: Active Protocol: Document 02/19/22 13:50 AB (Rec: 02/19/22 15:19 AB [id number]) Physical Therapy Current Condition Current Condition Evaluation Date 02/19/22 Treatment Diagnosis UTI; R chest pain; difficulty in walking Onset Date 02/18/22 M3 PT-IP Subjective Start: 02/19/22 15:01 Freq: Status: Active Protocol: Document 02/19/22 13:50 AB (Rec: 02/19/22 15:19 AB [id number]) Subjective Physical Therapy Visit Type Type Initial Evaluation Visit Start Time 13:50 Visit Stop Time 14:46 Total Visit Minutes 56 Number of LAYAWAY CLERK Visits 0 Physical Therapy Visit Comments Patient Comments agreeable to do PT M4 PT-IP Mobility and Gait Start: 02/19/22 15:01 Freq: Status: Active Protocol: Document 02/19/22 13:50 AB (Rec: 02/19/22 15:19 AB [id number]) PT-Bed Mobility Assessment Supine to Sit Supine to Sit Maximum Assistance,Total Assistance,2 Person Assistance ,Head of Bed Elevated Sit to Supine Sit to Supine Maximum Assistance,Total Assistance,2 Person Assistance Scooting Scooting to Edge of Bed Dependent PT-Transfer Assessment Comments Mobility Comments pt completed supine to sit with HOB elevated max A x 3 to total A x 3. sat on EOB CGA. assisted back to bed max A x 3 to total A x 3. c/o increase BLE pain R>L. positioned on the bed. call light and table placed within reach. PT-Balance Assessment Sitting Balance and Reactions Static Sitting Balance Ability Fair Dynamic Sitting Balance Ability Fair M5 PT-IP Objective Assessments Start: 02/19/22 15:01 Freq: Status: Active Protocol: Document 02/19/22 13:50 AB (Rec: 02/19/22 15:19 AB [id number]) Orientation Orientation/Cognition Level of Alertness Alert Orientation Name,Place,Situation Language Function Ability No Deficits Noted Safety Awareness Decreased Safety Awareness Memory Description No Deficits Noted Gross Range of Motion Lower Extremity ROM Assessment Bilaterally Impaired Impairments (+) B knee crepitus; c/o increase pain with PROM limiting movement Strength Lower Extremity Strength Assessment Bilaterally Impaired Comments Strength Comments RLE: 3-/5 LLE: 3-/5 Sensation Assessment Sensation Light Touch Impaired Proprioception (Position) Impaired Comments Sensation Comments has B LE edema decreasing sensation Muscle Tone Muscle Tone WNL Yes M6 PT-IP Treatment Start: 02/19/22 15:01 Freq: Status: Active Protocol: Document 02/19/22 13:50 AB (Rec: 02/19/22 15:19 AB [id number]) Physical Therapy Treatment Education Education Provided Safety M7 PT-IP Assessment and Plan Start: 02/19/22 15:01 Freq: Status: Active Protocol: Document 02/19/22 13:50 AB (Rec: 02/19/22 15:19 AB [id number]) PT Summary Assessment and Plan Potential Rehabilitation Potential Fair Status of Condition at Evaluation Evolving Summary Impairments Pain,ROM,Strength,Balance, Coordination,Sensation,Tone, Cognition,Bed Mobility, Transfers,Gait,Activity Tolerance Assessment Summary PT eval order received from ER to determine PT needs and plans to go to SNF rehab. pt has morbid obesity, BLE edema and BLE pain R>L requiring max A x 3 to total Ax 3 with bed mobility. pt stated that 5-6 days ago, she was able to at least stand and change her pads for voiding but now, unable to stand at all. pt will need SNF rehab to improve overal strength and mobility independence. Goals Bed Mobility Goal Moderate Assistance Transfer Goal Moderate Assistance,Front Wheeled Walker Gait Goal Moderate Assistance,Front Wheel Walker Gait Distance 25 Days to Meet Goals 10 Frequency of Treatment Frequency Of Treatment Once a Day Treatment Plan Physical Therapy Treatment Plan Bed Mobility Training,Transfer Training,Gait Training, Therapeutic Exercise,Balance Retraining,Discharge Planning, Hot or Cold Pack,Neuromuscular Re-ed,Coordination Retraining ,Manual Therapy Recommendations To Nursing Amount of Assist Needed Mechanical Lift Discharge Recommendations PT Discharge Recommendations SNF Rehab Transportation Needs at Discharge Wheelchair/Cabulance,Stretcher /Ambulance
--- NOTE | 2022-02-19 14:23 | PC.NURSE ---
PT at bedside.
--- NOTE | 2022-02-19 15:18 | CM.SWNOTE ---
Addendum entered by Daphney Lim 02/19/22 20:05: MOVIE OPERATOR receives call from Administration. Per Administration, they would like patient to d/c to home this evening with HH referral and BLS transport. Administration states they will have care management team f/u with patient at home tomorrow. MOVIE OPERATOR reviews this with ED provider Dr. Sinclair, Dr. Sinclair signs HH F2F referral and indicates understanding. MOVIE OPERATOR reviews this plan with patient, patient presents as fearful and worried about preparing her home for her. MOVIE OPERATOR discusses HH options and patient denies preference. MOVIE OPERATOR provides HH brochure for [facility], list of DME equiptment resources and provides group home care resources with the senior resource guide. MOVIE OPERATOR calls [facility] and leaves VM, MOVIE OPERATOR faxes clinicals, F2F, order for HH referral for PT, OT, MOVIE OPERATOR, RN and HH aide. Patient endorses concern of the quality of her transfer home for when she goes home and discusses how uncomfortable the transfer from her home was and states that it took 8 people to assist. Plan: patient to d/c to home via BLS with further support from [facility], patient to d/c with [facility] referral in place. SUDHEER Pizano Addendum entered by Daphney Lim 02/19/22 17:19: MOVIE OPERATOR/CARMEN Note MOVIE OPERATOR calls [place] and leaves VM MOVIE OPERATOR calls [facility] and leaves VM MOVIE OPERATOR calls [facility] and leaves message requesting return call. Plan: continue to search for SNF rehab placement and explore alternative options for patient. SUDHEER Pizano Original Note: MOVIE OPERATOR/ALLISONP Note Patient is 51 y/o female who presents to ED via EMS due to concern for right side pain. Patient reports hx of being bed bound but has been able to ambulate to the bathroom with walker until recently. Patient endorses that the leg pain has increased in the last 3 days. Patient states that she was able to stand 5-6 days ago but is not able to stand now. Patient's PCP is Dr. Temple, patient has [employer] insurance. Patient has hx of chest pain, leg pain, morbid obesity and UTI. MOVIE OPERATOR enters room to meet with patient and . Patient endorses that she has been sedentary since early 2017 but has been able to ambulate to the restroom until recently. Patient endorses hx of fear regarding leaving the house when the pandemic started. Patient endorses increase in leg pain recently which has limited patient's ability to ambulate. Patient states she is having current difficulty to stand up and get up with walker. Patient endorses pain, anguish and embarrassment Patient endorses that she has been sleeping on the couch since 2017. It is reported that patient has meals prepared for her and that she uses baby wipes to cleanse herself and has not been able to shower. Patient resides at home with her and daughter. and patient endorse concern for patient's ability to safely return to home. MOVIE OPERATOR discusses HH with patient and and they express concern and preference for patient to be in a facility or at the hospital. Patient endorses she wants physical therapy, MOVIE OPERATOR reports that PT will come down to meet with patient and assess. MOVIE OPERATOR discusses that in the case that there is not an admittable diagnosis to be admitted to acute care, MOVIE OPERATOR will explore options such as SNF rehab and HH at home with patient. Patient's Freddie calls MOVIE OPERATOR and reports his concerns privately. Freddie reports that patient's daughter has been a caregiver for 5 years and that she stated that she is no longer able to care for patient anymore and now patient is aware of her issue and motivated to strengthen her mobility. reports concern that the home is not set up well and there are concerns for hoarding. reports he is overwhelmed at the idea of patient returning home. MOVIE OPERATOR discusses that if patient were to d/c to home, a HH referral would be in place and resources would be provided for DME and truck terminal manager care plans. MOVIE OPERATOR discusses out of pocket private pay SNF options and he states that he could not afford that. MOVIE OPERATOR endorses that MOVIE OPERATOR will be calling SNFs to identify that as an option. PT determined that patient is unable to stand and in need of SNF rehab. SNF search: MOVIE OPERATOR calls [facility], it is reported that they are at capacity right now MOVIE OPERATOR calls [facility], it is reported that they are not in network with [facility]. MOVIE OPERATOR calls [facility], the mailbox was full and MOVIE OPERATOR was not able to leave . MOVIE OPERATOR calls [facility], it was reported that they do not admit residents outside of [place]. [facility], it is reported that they do not have beds. MOVIE OPERATOR calls [facility] in [place] and leaves requesting return call. Plan: MOVIE OPERATOR to continue to contact SNFs in [facility] and continue to discuss d/c options with family with HH and DME resources. Daphney Lim, SLOT HOST
[2022-02-20] VITALS (16 sets, daily range): BP systolic 112–151; BP diastolic 57–91; PULSE 90–110; RESP 18; O2SAT 91–99
--- NOTE | 2022-02-20 09:25 | PC.RNWOUND ---
This is a morbidly obese patient with a purewick in place to drain urine, which leaks and runs down to my backside, according to patient. Skin folds are inspected to reveal what appears to be intertriginous dermatitis to the superior Right lower extremity skin fold and an oval, purple wound (approx. 4x3cm) with partial epidermal loss to the inferior Right lower extremity skin fold. No drainage is noted from this wound. There is also redness noted to the Left lateral pannus fold, no open areas noted. All other skin folds inspected at this time appear without discoloration, skin intact, presence of moisture noted and yeasty odor noted. Skin folds are gently cleansed with ph balanced bath wipes and patted dry, InterDry placed. (Full depth of all skin folds, notably inner thighs and perineum, cannot be visualized at this time due to side rails of liveMag.rorney being up for patient safety. Socks are removed to reveal build up of adherent brown scale on feet, appearing as a thick layer of hyperkeratotic plaque. Patient says, I haven't been able to get to my feet in awhile because I can't really reach down there. Patient says she prefers to keep socks on. Patient turns to right side with 2 assist, backside is gently cleansed of moisture/urine. Patient's sacrogluteal area is light pink, blanchable. There is what appears to be a small moisture lesion to the right buttock (approx. 0.5 x 1 x 0.05cm), partial-thickness with maceration to edges. This appears to be from moisture/friction. No other open areas are noted. Barrier cream is quickly applied to sacrogluteal area and underlying fresh chux placed- patient verbalizes desire to return to supine position. Patient returns to supine position and self-adjusts in bed, requests clean gown. Wound nurse brings bariatric protective sacral dressing and ultrasorb advanced wicking underpad to patient's primary nurse to use for patient.
--- NOTE | 2022-02-20 09:27 | PC.NURSE ---
Assisted wound nurse in washing and patting dry folds in the legs, knees, pannus, under the breast and her buttocks. Placement of interdry dressing within the folds and z paste cream on her buttock. Patient requested that we cut off her shirt and place her in a hospital gown.
[2022-02-20] MEDS: CIPROFLOXACIN 250 MG TABLET 500 MG PO (09:34)
--- NOTE | 2022-02-20 12:42 | CM.SWNOTE ---
Addendum entered by TIANNA Salas 02/20/22 15:51: ADD: SW received a call from Spouse Freddie stating he had found a lift chair for pt but through [facility] at the [place] office and he has a friend coming to help provide truck to bean picker machine operator soon. Spouse confirmed time of BLS transport for 1800 here and confirms he can bean picker machine operator the chair and get home prior to BLS transport arriving. Discussed HH again and he is very appreciative that they will be present in the home soon this week and encouraged him to utilize the CHAIR INSTALLER towards getting other resources and supports in place. BF Original Note: Per previous SW note, no SNF found that had availability or contracted with pt's [facility] PPO or could accommodate her bariatric needs. Referral had been faxed yesterday to [facility] for the HACH (high acuity program) along with signed F2F and orders. Pt remains medically stable with no medical criteria for admission but had unsafe d/c plan. SW called [facility] and confirmed they received the referral but unfortunately do not have an opening date for start of care until next week 02/28/22 more than a week out. SW confirmed with [facility] that they have openings for start of care tomorrow and SW requested Sig forward the referral to [facility] and they were agreeable. SW met bedside with pt and updated on above and pt was hopeful for SNF rehab but SW updated her on the barriers to SNF (bed availability, insurance auth needed, bariatric accommodations). Pt confirms she is motivated for strengthening and to get back her independence and very agreeable with HH at this time. Pt states spouse is working to get a Lift Chair for her to stay in at d/c on the main floor not the bedroom 7 stairs up. SW explained not meeting medical criteria to remain in the hospital, either in the ED or Acute Care floor and the general cost of out of pocket to remain in the hospital. Pt very appreciative and understanding and confirms BLS will be needed for transport at d/c and requesting to d/c this evening to allow her time to prepare the home. SW called Freddie and discussed above and he confirms he and Dtr are having caregiver burnout. SW strongly encouraged him to reach out to [facility] to determine if pt qualifies for any in-home caregivers or other resources or the option of hiring [facility] to assist and reduce burnout or even the possibility of [facility] if needed. Spouse confirms he had been moving things out of the household today but had not realized he was in charge of setting/getting DME. SW discussed possible options and strongly requested he begin making calls to [facility] and other DME suppliers towards getting a lift chair or bed or equipment in the home by this afternoon as BLS transport scheduled for 1800. Spouse acknowledges understanding and will begin placing calls now along with calling his friend for assist. SW updated pt bedside, MD, and career advisor. SW called [facility] and rescheduled BLS transport for 1800 tonight based on their schedule availability and confirmed they are aware of her bariatric size 450 lbs and few steps to enter. BLS form completed and attached facesheet and PT eval and placed in pt chart in ED. Plan: Patient to d/c to home tonight via [facility] at 1800 with Savana JARAMILLO to start tomorrow and family has resources for additional supports to follow up with after d/c and with [facility]ana JARAMILLO. TIANNA Salas
--- NOTE | 2022-02-20 16:00 | PT.IPTN ---
Physical Therapy Treatment Note M2 PT-IP Current Condition Start: 02/19/22 15:01 Freq: Status: Active Protocol: Document 02/19/22 13:50 AB (Rec: 02/19/22 15:19 AB [id number]) Physical Therapy Current Condition Current Condition Evaluation Date 02/19/22 Treatment Diagnosis UTI; R chest pain; difficulty in walking Onset Date 02/18/22 M3 PT-IP Subjective Start: 02/19/22 15:01 Freq: Status: Active Protocol: Document 02/20/22 16:00 AB (Rec: 02/20/22 16:57 AB [id number]) Subjective Physical Therapy Visit Type Type Treatment Note Visit Start Time 16:00 Visit Stop Time 16:28 Total Visit Minutes 28 Number of DROP FORGE OPERATOR Visits 0 Physical Therapy Visit Comments Patient Comments agreeable to do PT M4 PT-IP Mobility and Gait Start: 02/19/22 15:01 Freq: Status: Active Protocol: Document 02/20/22 16:00 AB (Rec: 02/20/22 16:57 AB [id number]) PT-Bed Mobility Assessment Supine to Sit Supine to Sit Maximum Assistance,2 Person Assistance,Head of Bed Elevated,Bedrails PT-Transfer Assessment Comments Mobility Comments pt agreed to do PT. attempted to sit on EOB max A for LE mobility. C/o RLE upon sitting fci to EOB and stated that her LE has too much pain and cannot let it dangle on the EOB and does not want to sit up anymore. Pt stated that she just wants to review exercises that she can do at home. educated on LE exercises: ankle pumps, quads and glute sets M5 PT-IP Objective Assessments Start: 02/19/22 15:01 Freq: Status: Active Protocol: Document 02/19/22 13:50 AB (Rec: 02/19/22 15:19 AB [id number]) Orientation Orientation/Cognition Level of Alertness Alert Orientation Name,Place,Situation Language Function Ability No Deficits Noted Safety Awareness Decreased Safety Awareness Memory Description No Deficits Noted Gross Range of Motion Lower Extremity ROM Assessment Bilaterally Impaired Impairments (+) B knee crepitus; c/o increase pain with PROM limiting movement Strength Lower Extremity Strength Assessment Bilaterally Impaired Comments Strength Comments RLE: 3-/5 LLE: 3-/5 Sensation Assessment Sensation Light Touch Impaired Proprioception (Position) Impaired Comments Sensation Comments has B LE edema decreasing sensation Muscle Tone Muscle Tone WNL Yes M6 PT-IP Treatment Start: 02/19/22 15:01 Freq: Status: Active Protocol: Document 02/20/22 16:00 AB (Rec: 02/20/22 16:57 AB [email or web address]) Physical Therapy Treatment Education Education Provided Safety M7 PT-IP Assessment and Plan Start: 02/19/22 15:01 Freq: Status: Active Protocol: Document 02/20/22 16:00 AB (Rec: 02/20/22 16:57 AB [id number]) PT Summary Assessment and Plan Potential Rehabilitation Potential Fair Summary Impairments Pain,ROM,Strength,Balance,Bed Mobility,Transfers,Gait, Activity Tolerance Progress Towards Goals Slow Progress due to Pain,Slow Progress due to Medical Issues,Slow Progress due to Activity Tolerance Assessment Summary pt continue to require max A x 2 and unable to tolerate much activity and unable to sit on EOB due to c/o pain. Pt stated that spouse was able to get a lift chair for her to use at home and will go home with BLS transport and will have services. Goals Bed Mobility Goal Moderate Assistance Transfer Goal Moderate Assistance,Front Wheeled Walker Gait Goal Moderate Assistance,Front Wheel Walker Gait Distance 25 Days to Meet Goals 10 Frequency of Treatment Frequency Of Treatment Once a Day Treatment Plan Physical Therapy Treatment Plan Bed Mobility Training,Transfer Training,Gait Training, Therapeutic Exercise,Balance Retraining,Discharge Planning, Hot or Cold Pack,Neuromuscular Re-ed,Coordination Retraining ,Manual Therapy Recommendations To Nursing Amount of Assist Needed Mechanical Lift Discharge Recommendations PT Discharge Recommendations SNF Rehab Transportation Needs at Discharge Wheelchair/Cabulance,Stretcher /Ambulance
== END 2022-02-20 18:30 | disposition home or self-care (01) ==
PROVIDERS: Emergency Medicine; Emergency Provider Emergency Medicine; PCP Family Medicine
DX: R07.9 Chest pain, unspecified (principal); M79.604 Pain in right leg; N39.0 Urinary tract infection, site not specified; E87.6 Hypokalemia; E66.01 Morbid (severe) obesity due to excess calories
CPT/HCPCS: 36415; 71045; 71275; 80053; 81001; 82550; 83690; 83735; 83880; 84484; 85025; 85379; 85610; 85730; 87077; 87086; 87186; 93005; 93010; 93971; 96361; 96365; 96372; 96375; 97110; 97162; 97530; 99285; J0744; J1650; J1885; J2270

== ENCOUNTER → 2023-05-14 18:33 | Outpatient (ROUT) | payer OTHER, SELFPAY | PROVIDERS: PCP Family Medicine; Visit Provider Family Medicine | DX: L03.119 Cellulitis of unspecified part of limb (principal) | CPT/HCPCS: 87070; 87102; 87205 ==